=== PATIENT | male | born 1945 | race Caucasian/White ===

== ENCOUNTER 2022-11-04 11:42 | Inpatient (IN) | payer MEDICARE ==
[~2022-11-04] VITALS: Ht 175.3 cm; Wt 88.9 kg
[2022-11-04] VITALS (7 sets, daily range): BP systolic 114–152; BP diastolic 75–80; PULSE 63–80; RESP 16–24; TEMP 97.6–98; O2SAT 91–97
[2022-11-04 12:35] LABS: BASOPHILS % (AUTO) 0.4 % (0.0-2.0); EOSINOPHILS % (AUTO) 0.2 % (0.0-4.0); HEMATOCRIT 43.5 % (36-52); HEMOGLOBIN 14.5 g/dL (12.0-18.0); LYMPHOCYTES # (AUTO) 0.7 K/uL (2.0-11.5); LYMPHOCYTES % (AUTO) 10.7 % (20.5-51.1); MEAN CORPUSCULAR HEMOGLOBIN 31 pg (27-31); MEAN CORPUSCULAR HGB CONC 33 g/dL (33-37); MEAN CORPUSCULAR VOLUME 93.3 fL (80-94); MONOCYTES # (AUTO) 0.6 K/uL (0.8-1.0); MONOCYTES % (AUTO) 8.8 % (1.7-9.3); NEUTROPHILS % (AUTO) 79.9 % (42.2-75.2); PLATELET COUNT (AUTO) 137 K/uL (140-450); RED BLOOD CELL COUNT(AUTO) 4.66 MIL/uL (4.20-6.10); RED CELL DISTRIBUTION WIDTH 14.9 % (11.6-13.7); WHITE BLOOD COUNT (AUTO) 6.3 K/uL (4.8-10.8)
[2022-11-04 12:56] LABS: ALANINE AMINOTRANSFERASE 22 U/L (12-78); ALBUMIN 2.7 g/dL (3.4-5.0); ALKALINE PHOSPHATASE 60 U/L (50-136); ANION GAP 11.7 (8-16); ASPARTATE AMINOTRANSFERASE 26 U/L (15-37); CALCIUM 7.8 mg/dL (8.5-10.1); CARBON DIOXIDE 25.8 mmol/L (21-32); CHLORIDE 105 mmol/L (98-107); CREATININE 1.2 mg/dL (0.6-1.3); GLUCOSE 97 mg/dL (74-106); POTASSIUM 4.5 mmol/L (3.5-5.1); SODIUM SERUM 138 mmol/L (136-145); TOTAL BILIRUBIN 0.7 mg/dL (0.0-1.0); UREA NITROGEN, BLOOD 27 mg/dL (7-18)
[2022-11-04] MEDS ORDERED: ASPIRIN 325 MG TAB PO ONE (13:25)
[2022-11-04] MEDS ORDERED: ALBUTEROL SULFATE/IPRATROPIU 3 ML SOL IH ONE (13:25)
[2022-11-04] MEDS ORDERED: methylPREDNISolone SS 125 MG/2 ML VIAL IVP ONE (13:55)
[2022-11-04 14:12] LABS: APPEARANCE,URINE CLEAR (CLEAR); BILIRUBIN,URINE NEGATIVE (NEGATIVE); BLOOD, URINE 2+ (NEGATIVE); COLOR,URINE YELLOW (YELLOW); LEUKOCYTE ESTERASE ,URINE NEGATIVE (NEGATIVE); NITRITE, URINE NEGATIVE (NEGATIVE); PROTEIN,URINE TRACE (NEGATIVE); UGLUCOSE NEGATIVE (NEGATIVE)
[2022-11-04 14:24] LABS: BACTERIA,URINE 10-30 (MOD) /HPF (None Seen); SQUAMOUS EPITHELIAL CELL,UR 0-3 (FEW) /LPF (0-3 (FEW)); WBC,URINE 0-5 /HPF (0-5)
[2022-11-04] MEDS ORDERED: POTASSIUM CHLORIDE 10 MEQ TABER PO PRN (14:40)
[2022-11-04] MEDS ORDERED: DOCUSATE SODIUM 100 MG GELCAP PO PRN (14:40)
[2022-11-04] MEDS ORDERED: ACETAMINOPHEN 325 MG TAB PO PRN (14:40)
[2022-11-04] MEDS ORDERED: ALBUTEROL SULFATE/IPRATROPIU 3 ML SOL IH PRN ×2 (14:40→16:05)
[2022-11-04] MEDS ORDERED: MORPHINE SULFATE 2 MG/ML SYR IVP PRN (14:40)
[2022-11-04] MEDS ORDERED: MAG SULF 2000 MG/WATER PREMIX 50 ML IV PRN (14:40)
[2022-11-04] MEDS ORDERED: LORazepam 2 MG/ML VIAL IVP PRN (14:40)
[2022-11-04] MEDS ORDERED: ZOLPIDEM 10 MG TAB PO PRN (14:40)
[2022-11-04] MEDS ORDERED: ONDANSETRON 4 MG/2 ML VIAL IVP PRN (14:40)
[2022-11-04] MEDS: lisinopriL 10 MG TAB PO SCH (14:44)
[2022-11-04] MEDS ORDERED: ASPIRIN 325 MG TAB ONE (15:01)
[2022-11-04] MEDS ORDERED: methylPREDNISolone SS 125 MG/2 ML VIAL ONE (15:11)
[2022-11-04] MEDS ORDERED: ALPR0.5T20 PO (15:13)
[2022-11-04] MEDS ORDERED: ATOR20TA40 PO (15:13)
[2022-11-04] MEDS ORDERED: LUBI24CA PO (15:13)
[2022-11-04] MEDS ORDERED: ATEN25TA2 PO (15:13)
[2022-11-04] MEDS ORDERED: RIVA20TA PO (15:13)
[2022-11-04] MEDS ORDERED: AMOX500C25 PO (15:13)
[2022-11-04] MEDS ORDERED: HYDR-4924 PO (15:13)
[2022-11-04] MEDS ORDERED: FLUT1POW3 INH (15:13)
[2022-11-04] MEDS ORDERED: LISI40TA8 PO (15:13)
[2022-11-04] MEDS ORDERED: GABA300S3 PO (15:15)
[2022-11-04 16:33] LABS: FLU A ANTIGEN negative (NEGATIVE); FLU B ANTIGEN NEGATIVE (NEGATIVE)
[2022-11-04] MEDS: AZITHROMYCIN 500 MG in DEXTROSE 5% 250 ML IV SCH (20:49)
[2022-11-04] MEDS: methylPREDNISolone SS 40 MG/ML VIAL IVP SCH (20:49)
[2022-11-05] VITALS (7 sets, daily range): BP systolic 107–138; BP diastolic 67–87; PULSE 62–89; RESP 18; TEMP 97–98.3; O2SAT 91–94
[2022-11-05 06:42] LABS: HEMOGLOBIN 14.5 g/dL (12.0-18.0); LYMPHOCYTES # (AUTO) 0.7 K/uL (2.0-11.5); LYMPHOCYTES % (AUTO) 10.4 % (20.5-51.1); MEAN CORPUSCULAR HEMOGLOBIN 31 pg (27-31); MEAN CORPUSCULAR HGB CONC 34 g/dL (33-37); MEAN CORPUSCULAR VOLUME 92.9 fL (80-94); MONOCYTES # (AUTO) 0.3 K/uL (0.8-1.0); MONOCYTES % (AUTO) 4.6 % (1.7-9.3); NEUTROPHILS # (AUTO) 5.5 K/uL (1.8-7.7); PLATELET COUNT (AUTO) 144 K/uL (140-450); RED BLOOD CELL COUNT(AUTO) 4.63 MIL/uL (4.20-6.10); RED CELL DISTRIBUTION WIDTH 14.6 % (11.6-13.7); WHITE BLOOD COUNT (AUTO) 6.5 K/uL (4.8-10.8)
[2022-11-05 06:47] LABS: ANION GAP 12.9 (8-16); CALCIUM 8.3 mg/dL (8.5-10.1); CARBON DIOXIDE 26.4 mmol/L (21-32); CHLORIDE 106 mmol/L (98-107); CREATININE 1.3 mg/dL (0.6-1.3); GLUCOSE 164 mg/dL (74-106); POTASSIUM 4.3 mmol/L (3.5-5.1); SODIUM SERUM 141 mmol/L (136-145); UREA NITROGEN, BLOOD 28 mg/dL (7-18)
[2022-11-05 07:32] LABS: CHOL/HDL RATIO 2.5 (1-4.5)
[2022-11-05] MEDS: methylPREDNISolone SS 40 MG/ML VIAL IVP SCH ×2 (09:04→20:54)
[2022-11-05] MEDS: lisinopriL 10 MG TAB PO SCH (09:04)
[2022-11-05] MEDS: ECOTRIN 81 MG TABEC PO SCH (09:04)
[2022-11-05] MEDS: AZITHROMYCIN 500 MG in DEXTROSE 5% 250 ML IV SCH (17:16)
[2022-11-06] VITALS: BP 129/79; PULSE 60; PULSE 63; RESP 18; TEMP 98.9; O2SAT 91
[2022-11-06 04:00] VITALS: BP 127/85; PULSE 59; PULSE 70; RESP 18; TEMP 99.1; O2SAT 94
[2022-11-06 07:10] LABS: BASOPHILS % (AUTO) 0.1 % (0.0-2.0); HEMATOCRIT 43.8 % (36-52); HEMOGLOBIN 14.6 g/dL (12.0-18.0); LYMPHOCYTES # (AUTO) 0.5 K/uL (2.0-11.5); MEAN CORPUSCULAR HEMOGLOBIN 31 pg (27-31); MEAN CORPUSCULAR HGB CONC 33 g/dL (33-37); MEAN CORPUSCULAR VOLUME 92.3 fL (80-94); MONOCYTES # (AUTO) 0.6 K/uL (0.8-1.0); MONOCYTES % (AUTO) 4.6 % (1.7-9.3); NEUTROPHILS # (AUTO) 12.5 K/uL (1.8-7.7); PLATELET COUNT (AUTO) 168 K/uL (140-450); RED BLOOD CELL COUNT(AUTO) 4.74 MIL/uL (4.20-6.10); RED CELL DISTRIBUTION WIDTH 14.5 % (11.6-13.7); WHITE BLOOD COUNT (AUTO) 13.7 K/uL (4.8-10.8)
[2022-11-06 07:29] LABS: ANION GAP 14.2 (8-16); CALCIUM 8.3 mg/dL (8.5-10.1); CARBON DIOXIDE 23.2 mmol/L (21-32); CHLORIDE 107 mmol/L (98-107); GLUCOSE 146 mg/dL (74-106); POTASSIUM 4.4 mmol/L (3.5-5.1); SODIUM SERUM 140 mmol/L (136-145); UREA NITROGEN, BLOOD 29 mg/dL (7-18)
[2022-11-06 08:00] VITALS: BP 134/94; PULSE 58; PULSE 66; RESP 18; TEMP 98; O2SAT 90
[2022-11-06 08:00] LABS: LYMPHOCYTES % (AUTO) 3.9 % (20.5-51.1); NEUTROPHILS % (AUTO) 91.4 % (42.2-75.2)
[2022-11-06 09:10] VITALS: PULSE 78; RESP 20; O2SAT 93
[2022-11-06] MEDS: methylPREDNISolone SS 40 MG/ML VIAL IVP SCH (09:25)
[2022-11-06] MEDS: ECOTRIN 81 MG TABEC PO SCH (09:25)
[2022-11-06] MEDS: lisinopriL 10 MG TAB PO SCH (09:25)
[2022-11-06 12:00] VITALS: BP 108/73; PULSE 70; PULSE 71; RESP 18; TEMP 98.5; O2SAT 93
[2022-11-06] MEDS ORDERED: AZIT250T4 PO (14:27)
[2022-11-06 14:46] VITALS: BP 108/73; PULSE 71; RESP 18; TEMP 98.5
== END 2022-11-06 15:45 | disposition home or self-care (01) | DRG 177 ==
LOC: MED 11:42 → MTU 14:48
PROVIDERS: ADMIT General Practice; ATTEND General Practice
DX: U07.1 COVID-19 (principal); J12.82 Pneumonia due to coronavirus disease 2019; J96.01 Acute respiratory failure with hypoxia; J44.0 Chronic obstructive pulmonary disease with (acute) lower respiratory infection; I48.91 Unspecified atrial fibrillation; N40.0 Benign prostatic hyperplasia without lower urinary tract symptoms; K59.00 Constipation, unspecified; J40 Bronchitis, not specified as acute or chronic; Z79.01 Long term (current) use of anticoagulants; Z79.899 Other long term (current) drug therapy
CPT/HCPCS: 36415; 71045; 80048; 80053; 81001; 83036; 83735; 84443; 84484; 85025; 87081; 93005; 94640; 96374; 99291; J0456; J0696; J1644; J2270; J2920; J2930; J7060; Q0092